=== PATIENT | female | born 1950 | race Caucasian/White ===

== ENCOUNTER 2017-09-18 11:23 | Emergency (ER) | payer MEDICARE, BC ==
[2017-09-18 11:46] VITALS: BP 95/63
--- NOTE | 2017-09-18 11:56 | UC ---
Knee Pain HPI - HPI Summary HPI Summary: 67 yo female presents with LEFT knee pain for the last 2 weeks. She tells me that 2 weeks ago she jumped down off her tractor and thinks she may have landed with her knee rotated. She didn't have any immediate pain, but the next day noticed some mild knee pain. Since that time has had progressively worse pain, especially after a long day or walking her dog. She has taken aspirin and ibuprofen for pain, which helps moderately. She is ambulating without assistance and without a limp. Denies numbness or tingling. - History of Current Complaint Chief Complaint: UCLowerExtremity Stated Complaint: L KNEE INJURY Time Seen by Provider: 09/18/17 11:56 Hx Obtained From: Patient Onset/Duration: Gradual Onset Severity Initially: Moderate Severity Currently: Moderate Pain Intensity: 8 Pain Scale Used: 0-10 Numeric - Allergies/Home Medications Allergies/Adverse Reactions: Allergies Allergy/AdvReac Type Severity Reaction Status Date / Time atorvastatin [From Lipitor] Allergy facial Verified 09/18/17 11:46 redness PMH/Surg Hx/FS Hx/Imm Hx Cardiovascular History: Hypertension Respiratory History: Asthma - Surgical History Surgical History: Yes Surgery Procedure, Year, and Place: bunion surgeries - Family History Known Family History: Positive: None - Social History Lives: With Family Alcohol Use: Weekly Substance Use Type: None Smoking Status (MU): Never Smoked Tobacco Have You Smoked in the Last Year: No Review of Systems Constitutional: Negative Skin: Negative Respiratory: Negative Cardiovascular: Negative Motor: Negative Neurovascular: Negative Musculoskeletal: Other: - LEFT knee pain Neurological: Negative Psychological: Negative All Other Systems Reviewed And Are Negative: Yes Physical Exam - Summary Physical Exam Summary: GENERAL: NAD. WDWN. No pain distress. SKIN: No rashes, sores, lesions, or open wounds. NECK: Supple. Nontender. No lymphadenopathy. CHEST: No accessory muscle use. Breathing comfortably and in no distress. CV: . Pulses intact popliteal, PT, and DP. Brisk cap refill. MSK: LEFT knee: Mild medial TTP. Strength 5/5. Mild edema about the knee joint. No patella apprehension. Negative Lynnette, A/P drawer, Ani, and varus/ valgus stress. NEURO: Alert. Sensations intact and symmetric B/L LEs PSYCH: Age appropriate behavior. Triage Information Reviewed: Yes Vital Signs: Initial Vital Signs Temp 96.7 F 09/18/17 11:42 Pulse 92 09/18/17 11:42 Resp 18 09/18/17 11:42 BP 95/63 09/18/17 11:42 Pulse Ox 100 09/18/17 11:42 Vital Signs Reviewed: Yes Knee Pain Course/Dx - Course Course Of Treatment: XR: IMPRESSION: JOINT EFFUSION, NO FRACTURE IS SEEN. Suspect strain vs meniscus injury - will refer her to Sports medicine and physical therapy for further evaluation and treatment. Pt agreeable to this plan. - Differential Dx/Diagnosis Provider Diagnoses: Left knee pain Discharge - Sign-Out/Discharge Documenting (check all that apply): Patient Departure - Discharge Plan Condition: Stable Disposition: HOME Patient Education Materials: Knee Pain (ED) Referrals: [facility] [Provider Group] - As Soon As Possible Queta Farias NP [Primary Care Provider] - Additional Instructions: If you develop a fever, shortness of breath, chest pain, new or worsening symptoms - please call your PCP or go to the ED. 1) Rice, Ice, and elevate your knee as much as possible to help with pain and swelling 2) May try and [id number] knee brace 3) Please call Sports Medicine at the number below to schedule a follow up appointment 4) Please follow up with Physical therapy for further evaluation - Billing Disposition and Condition Condition: STABLE Disposition: Home Attestation Statement User Type: Provider Provider Attestation: I was available for consult. This patient was seen by the RAYNE. The patient was not presented to, seen by, or examined by me. -Vera
--- NOTE | 2017-09-18 12:25 | RAD ---
INDICATION: Left knee injury. TECHNIQUE: 4 views of the left knee were obtained. FINDINGS: The bones are normal alignment. There appears to be a small joint effusion present. No fracture is seen. Joint spaces appear maintained. IMPRESSION: JOINT EFFUSION, NO FRACTURE IS SEEN.
== END 2017-09-18 12:57 | disposition home or self-care (01) ==
LOC: UCEAST 11:23
DX: M25.562 Pain in left knee (principal); I10 Essential (primary) hypertension; J45.909 Unspecified asthma, uncomplicated; Z88.8 Allergy status to other drugs, medicaments and biological substances
CPT/HCPCS: 99211; G0463